=== PATIENT | female | born 1990 | race Caucasian/White ===

== ENCOUNTER 2021-03-11 20:14 | Emergency (ER) | payer OTHER ==
[~2021-03-11 20:14] MED LIST: FLINTSTONES CO1 EAC1 PO; HYDROXYZINE HCL25 MG PO; MELATONIN5 M2 PO; NORCO 5-325 TA1 EACH PO; PROMETHEGA12.5 MG/SU PR; ZOFRAN8 MG PO
[2021-03-12] MEDS ORDERED: AUGMENTIN 875-1 EACH PO (01:36)
== END 2021-03-12 01:40 | disposition home or self-care (01) ==
LOC: FER 20:14
DX: S50.872A Other superficial bite of left forearm, initial encounter (principal); S60.311A Abrasion of right thumb, initial encounter; I10 Essential (primary) hypertension; Z23 Encounter for immunization; Z88.5 Allergy status to narcotic agent; Z91.041 Radiographic dye allergy status; W54.0XXA Bitten by dog, initial encounter; Y93.89 Activity, other specified
CPT/HCPCS: 73090; 73130; 90471; 90715